=== PATIENT | female | born 1935 | race Caucasian/White ===

== ENCOUNTER 2017-07-14 01:36 | Inpatient (IN) | payer MEDICARE, OTHER ==
[2017-07-14] MEDS ORDERED: Ondansetron HCl/PF 4 MG/2 ML Vial ONE ×2 (02:23→05:14)
[2017-07-14] MEDS ORDERED: cloNIDine 0.1 MG TAB ONE (02:41)
[2017-07-14 02:53] LABS: #Lymphocytes 1.5 thou/uL (1.20-3.40); #Monocytes 0.7 thou/uL (0.11-0.59); #Neutrophils 9.2 thou/uL (1.40-6.50); %Basophils 0.3 % (0.0-1.0); %Eosinophils 0.3 % (0.0-10.0); %Lymphocytes 13.1 % (21.0-51.0); %Monocytes 5.9 % (0.0-10.0); Hematocrit 37.2 % (36.0-47.0); Mean Platelet Volume 6.6 fL (7.4-10.4); Red Blood Cell (RBC) Count 4.33 mill/uL (4.20-5.40); White Blood Cell (WBC) Count 11.5 thou/uL (4.8-10.8)
[2017-07-14 03:15] LABS: ALT (SGPT) 14 U/L (8-55); AST (SGOT) 23 U/L (5-34); Alkaline Phosphatase 61 U/L (40-150); Anion Gap 12 mmol/L (10-20); BUN (Urea Nitrogen) 17 mg/dL (9.8-20.1); Bilirubin, Total 1.1 mg/dL (0.2-1.2); Calc. Creatinine Clearance 0 mL/min (70-130); Calcium 9.4 mg/dL (7.8-10.44); Carbon Dioxide 26 mmol/L (23-31); Chloride 90 mmol/L (98-107); Estimated GFR-MDRD 54; Globulin 2.9 g/dL (2.4-3.5); Protein, Total 7.1 g/dL (6.0-8.3)
[2017-07-14 03:20] LABS: Troponin I Less than 0.010 ng/mL (< 0.028)
[2017-07-14 04:49] LABS: Bilirubin Negative (Negative); Blood, Urine Negative (Negative); Glucose, Urine (Dipstick) Negative (Negative); Ketone, Urine Trace mg/dL (Negative); Nitrite Negative (Negative); Protein, Urine (Dipstick) Negative (Neg-Trace); Urobilinogen 0.2 mg/dL (0.2-1.0)
[2017-07-14 05:13] LABS: Osmolality, Urine 410 mOsm/kg (300-900)
[2017-07-14 05:22] LABS: Sodium, Urine 141 mmol/L (Not Available)
[2017-07-14 05:24] LABS: Magnesium 1.9 mg/dL (1.6-2.6); Phosphorus 2.3 mg/dL (2.3-4.7)
[2017-07-14] MEDS ORDERED: Ondansetron HCl/PF 4 MG/2 ML Vial IVP PRN ×2 (05:31→06:25)
[2017-07-14] MEDS ORDERED: Acetaminophen 325 MG TAB PO PRN ×2 (05:31→06:25)
[2017-07-14] MEDS ORDERED: Ondansetron ODT 4 MG TAB SL PRN (05:31)
[2017-07-14] MEDS: Sodium Chloride 0.9% 1,000 ML IV SCH ×3 (05:38→21:27)
[2017-07-14 05:46] VITALS: BMI 23.7
[2017-07-14 06:13] LABS: Troponin I 0.013 ng/mL (< 0.028)
[2017-07-14] MEDS ORDERED: Ondansetron ODT 4 MG TAB PO PRN (06:25)
[2017-07-14] MEDS ORDERED: Senokot 8.6 MG TAB PO PRN (06:25)
[2017-07-14] MEDS ORDERED: Calcium Carbonate 500 MG ChewTAB PO PRN (06:25)
[2017-07-14] MEDS ORDERED: Diabetic Tussin 200 MG/10 ML UDCUP PO PRN (06:31)
[2017-07-14] MEDS ORDERED: Polyethylene Glycol 3350 17 GM Packet PO PRN (06:31)
[2017-07-14] MEDS ORDERED: Eucerin (Mineral Oil/Petrolatum,White) 30 gm Jar TOP PRN (06:31)
[2017-07-14] MEDS ORDERED: Loratadine 10 MG TAB PO PRN (06:31)
--- NOTE | 2017-07-14 06:41 | HP ---
DATE OF ADMISSION: 07/14/2017 PRIMARY CARE PHYSICIAN: CARLOS Romo. PRIMARY PRACTICAL NURSING INSTRUCTOR: Dr. George. CHIEF COMPLAINT: Nausea, vomiting. HISTORY OF PRESENT ILLNESS: Patient is an 82-year-old female with hypertension and GERD who presente d to the emergency room with above complaints. Over the last 12 hours, the patient developed gradual worsening nausea along with vomiting. She has vomited 3 times so far. She also had some generalized headache that has resolved at this time. She denies any abdominal pain, dysuria, hematuria or urgency. No fever or chills reported. She denies e ating outside. She feels generally weak and fatigued. In the emergency room, initial vital signs showed temperature 98.8, respiration of 18, pulse rate of 72 with blood pressure at 204/89 with O2 saturation of 97% on room air. EKG showed normal sinus rhyt hm without significant ST-T wave changes. Her labs were consistent with hyponatremia with sodium of 124. KUB was negative for obstruction. She received IV fluids with clonidine and Zofran in the [facility] room. PAST MEDICAL HISTORY: 1. Hypertension. 2. GERD. 3. Coronary artery disease. 4. Anxiety. 5. Hyperlipidemia. PAST SURGICAL HISTORY: 1. Cardiac catheterization that showed single vessel disease. 2. Hysterectomy. ALLERGIES: Patient is allergic to SULFA and CELEBREX. CURRENT HOME MEDICATIONS: Patient is unable to recall her medications. Family to bring an accurate list of medications later today. SOCIAL HISTORY: Patient currently lives at home with her family in [place]. She denies current use of smoking, alcohol or drug use. FAMILY HISTORY: Negative for premature coronary artery disease. REVIEW OF SYSTEMS: The following complete review of systems was negative, unless otherwise mentioned in the HPI or below: Constitutional: Weight loss or gain, ability to conduct usual activities. Skin: Rash, itching. Eyes: Double vision, pain. ENT/Mouth: Nose bleeding, neck stiffness, pain, tenderness. Cardiovascular: Palpitations, dyspnea on exertion, orthopnea. Respiratory: Shortness of breath, wheezing, cough, hemoptysis, fever or night sweats. Gastrointestinal: Poor appetite, abdominal pain, heartburn, nausea, vomiting, constipation, or diarr hea. Genitourinary: Urgency, frequency, dysuria, nocturia. Musculoskeletal: Pain, swelling. Neurologic/Psychiatric: Anxiety, depression. Allergy/Immunologic: Skin rash, bleeding tendency. PHYSICAL EXAMINATION: VITAL SIGNS: As discussed above. Her blood pressure later improved to 176/76. GENERAL: An 82-year-old female in no apparent distress. Nausea somewhat improved. HEENT: Head is atraumatic, normocephalic, sclerae are anicteric. Dry mucous membrane, no oral lesio n. NECK: Supple, no JVD appreciated. No carotid bruit. LUNGS: Clear to auscultation bilaterally. No wheezing or rales. HEART: S1, S2 present. Regular rate and rhythm, 2/6 systolic murmur over the mitral area. ABDOMEN: Soft, nontender, bowel sounds present, no rebound or guarding, no costovertebral angle tend erness. EXTREMITIES: No edema or calf tenderness. NEUROLOGIC: Grossly nonfocal, moves all four extremities. PSYCHIATRY: Alert, awake, oriented x3. SKIN: Warm and dry. LYMPH NODES: No palpable lymph nodes in the neck. PERIPHERAL VASCULAR: Radial pulses palpable bilaterally. MUSCULOSKELETAL: No joint swelling or tenderness. LABORATORY FINDINGS AND IMAGING: CBC showed WBC 11.5 with platelet count of 270, hemoglobin 12.3. C hemistries showed sodium 124, potassium 4.2, chloride 90, bicarbonate 26, BUN 17, creatinine 0.98, se rum osmolality 261, urine osmolality 410 with urine sodium 141. KUB and chest x-ray by my review as discussed above. EKG by my review as discussed above. IMPRESSION: 1. Nausea, vomiting with headache of unclear etiology. Possibilities include acute gastroenteritis, suspected infectious. We will also get a CT scan of the brain to rule out intracranial abnormalitie s. 2. Hypertensive urgency, probably the cause of headache. We will start her on home medications once confirmed. P.r.n. medications will be added. Her anxiety may be contributing to her elevated blood pressure. 3. Hypotonic hyponatremia, probably secondary to dehydration from nausea and vomiting. We will cont inue IV fluids and monitor sodium closely. We will rule out thyroid abnormality. We will also check cortisol level. 4. Chronic kidney disease stage 3. 5. Mild leukocytosis, probably secondary to gastroenteritis. A stool sample will be sent. 6. Hyperlipidemia. Will resume home medications once confirmed. 7. CODE STATUS: FULL CODE. Surrogate decision maker: The patient makes her own decisions with the help of her family. Plan of care was discussed with the patient. She stated understanding. The patient will require probably 2 days for stabilization given her significant hyponatremia and navarro vated blood pressure.
[2017-07-14] MEDS ORDERED: Losartan Potassium 25 MG TAB PO SCH (07:15)
[2017-07-14] MEDS: Famotidine/PF 20 mg/2ml Vial SLOW IVP SCH ×2 (08:22→21:27)
[2017-07-14 09:05] LABS: Troponin I 0.021 ng/mL (< 0.028)
--- NOTE | 2017-07-14 09:07 | CT ---
CT HEAD WITHOUT CONTRAST: Multiple axial tomograms were obtained through the head without IV enhancement. HISTORY: Headache. Hypertension. FINDINGS: Ventricles have normal size and position. There are mild to moderate chronic ischemic white matter c hanges which have become more prominent when compared to the prior exam in 2009. No evidence of acut e cortical infarct. No mass or hemorrhage identified. IMPRESSION: There are mild to moderate chronic ischemic white matter changes. POS: [facility]
[2017-07-14] MEDS: Multivit, Therapeutic 1 TAB PO SCH (09:17)
[2017-07-14] MEDS: Heparin 5,000 UNITS/ML VIAL SC SCH ×2 (09:19→21:28)
--- NOTE | 2017-07-14 09:50 | RAD ---
ABDOMINAL SERIES WITH UPRIGHT CHEST AND 2 VIEW ABDOMEN: HISTORY: Abdominal pain with nausea and vomiting. FINDINGS: Hazy interstitial density is seen in the lung bases of uncertain significance. No confluent lung opa city. Bowel gas pattern unremarkable. Scattered stool and gas throughout the colon. Mild gaseous distenti on of the stomach. No significant small bowel gas. No free air identified. No abnormal calcificati on. IMPRESSION: Unremarkable bowel gas pattern. POS: [facility]
--- NOTE | 2017-07-14 11:42 | PDOC.PN ---
- Subjective Encounter Start Date: 07/14/17 Encounter Start Time: 10:15 Subjective: awake, still weak, no nausea or abd pain now - Objective Resuscitation Status: Resuscitation Status FULL:Full Resuscitation MAR Reviewed: Yes Vital Signs & Weight: Vital Signs (12 hours) Temp Pulse Resp BP Pulse Ox 07/14/17 08:17 97.5 F L 64 18 158/65 H 96 07/14/17 08:00 97.5 F L 64 18 158/65 H 96 07/14/17 06:09 71 166/73 H 07/14/17 05:45 97.2 F L 73 18 182/67 H 96 07/14/17 05:25 97.2 F L 76 18 193/73 H 96 Weight Weight 121 lb 8 oz I&O: 07/13/17 07/14/17 07/15/17 06:59 06:59 06:59 Intake Total 200 Balance 200 Result Diagrams: 07/14/17 02:35 07/14/17 08:30 Phys Exam - Physical Examination HEENT: PERRLA, sclera anicteric dry mucosa Neck: no JVD, supple Respiratory: no wheezing, no rales Cardiovascular: RRR, no significant murmur Gastrointestinal: soft, non-tender, no distention, positive bowel sounds Musculoskeletal: no edema, pulses present Neurological: non-focal, moves all 4 limbs Dx/Plan (1) Nausea & vomiting Code(s): R11.2 - NAUSEA WITH VOMITING, UNSPECIFIED Status: Acute Qualifiers: Vomiting type: unspecified Vomiting Intractability: intractable Qualified Code(s): R11.2 - Nausea with vomiting, unspecified (2) Dehydration Code(s): E86.0 - DEHYDRATION Status: Acute (3) Hyponatremia Code(s): E87.1 - HYPO-OSMOLALITY AND HYPONATREMIA Status: Acute (4) HTN (hypertension) Code(s): I10 - ESSENTIAL (PRIMARY) HYPERTENSION Status: Chronic Qualifiers: Hypertension type: essential hypertension Qualified Code(s): I10 - Essential (primary) hypertension (5) CAD (coronary artery disease) Code(s): I25.10 - ATHSCL HEART DISEASE OF [place] CORONARY ARTERY W/O ANG PCTRS Status: Chronic Qualifiers: Coronary Disease-Associated Artery/Lesion type: [place] artery [place] vs. transplanted heart: [place] heart Associated angina: without angina Qualified Code(s): I25.10 - Atherosclerotic heart disease of [place] coronary artery without angina pectoris (6) Dyslipidemia Code(s): E78.5 - HYPERLIPIDEMIA, UNSPECIFIED Status: Chronic - Plan CT brain no ac infarct, headache is resolved -: continue iv hydration, nephro consult -: stool studies, culture are pending -: is on toprol, cozaar and nebs -: slowly mobilize as tolerated, she lives alone at home * . Review of Systems - Medications/Allergies Allergies/Adverse Reactions: Allergies Allergy/AdvReac Type Severity Reaction Status Date / Time celecoxib [From Celebrex] Allergy "made me Verified 07/04/15 09:42 real sick" Sulfa (Sulfonamide Allergy Rash Verified 07/04/15 09:42 Antibiotics) Medications: Current Medications Acetaminophen (Tylenol) 650 mg PO Q4H PRN PRN Reason: Headache/Fever or Pain Albuterol/Ipratropium (Duoneb) 3 ml NEB [id number] PRN PRN Reason: SOB &/or Wheezing Calcium Carbonate (Tums) 1,000 mg PO Q4H PRN PRN Reason: Heartburn or Indigestion Famotidine (Pepcid) 20 mg SLOW IVP Q12HR [facility] Last Admin: 07/14/17 08:22 Dose: 20 mg Guaifenesin (Robitussin Sf) 200 mg PO Q4H PRN PRN Reason: Cough Heparin Sodium (Porcine) (Heparin) 5,000 units SC BID [facility] Last Admin: 07/14/17 09:19 Dose: 5,000 units Sodium Chloride (Normal Saline 0.9%) 1,000 mls @ 100 mls/hr IV .Q10H [facility] Stop: 07/16/17 17:00 Last Admin: 07/14/17 05:38 Dose: Not Given Loratadine (Claritin) 10 mg PO DAILYPRN PRN PRN Reason: Sinus Symptoms Losartan Potassium (Cozaar) 100 mg PO DAILY [facility] Metoprolol Succinate (Toprol Xl) 25 mg PO DAILY [facility] Mineral Oil/White Petrolatum (Eucerin Cream) 0 gm TOP BIDPRN PRN PRN Reason: Dry Skin Multivitamins (Theragran) 1 tab PO DAILY [facility] Last Admin: 07/14/17 09:17 Dose: 1 tab Ondansetron HCl (Zofran Odt) 4 mg PO Q6H PRN PRN Reason: Nausea/Vomiting Ondansetron HCl (Zofran) 4 mg IVP Q6H PRN PRN Reason: Nausea/Vomiting Last Admin: 07/14/17 10:25 Dose: 4 mg Polyethylene Glycol (Miralax) 17 gm PO DAILY PRN PRN Reason: Constipation Senna (Senokot) 2 tab PO HSPRN PRN PRN Reason: Constipation Sodium Chloride (Flush - Normal Saline) 10 ml IVF PRN PRN PRN Reason: Saline Flush Stop: 07/14/17 17:00 Last Admin: 07/14/17 09:18 Dose: 10 ml
[2017-07-15 05:35] LABS: #Lymphocytes 1.9 thou/uL (1.20-3.40); #Monocytes 0.7 thou/uL (0.11-0.59); #Neutrophils 4.3 thou/uL (1.40-6.50); %Basophils 0.3 % (0.0-1.0); %Eosinophils 0.5 % (0.0-10.0); %Lymphocytes 27.1 % (21.0-51.0); %Monocytes 10.6 % (0.0-10.0); Mean Platelet Volume 6.6 fL (7.4-10.4)
[2017-07-15 06:18] LABS: ALT (SGPT) 11 U/L (8-55); AST (SGOT) 21 U/L (5-34); Alkaline Phosphatase 45 U/L (40-150); Anion Gap 9 mmol/L (10-20); BUN (Urea Nitrogen) 12 mg/dL (9.8-20.1); Bilirubin, Total 0.8 mg/dL (0.2-1.2); Calc. Creatinine Clearance 40 mL/min (70-130); Calcium 8.4 mg/dL (7.8-10.44); Carbon Dioxide 21 mmol/L (23-31); Chloride 102 mmol/L (98-107); Estimated GFR-MDRD 58; Globulin 2.1 g/dL (2.4-3.5); Magnesium 1.7 mg/dL (1.6-2.6); Phosphorus 2.7 mg/dL (2.3-4.7); Protein, Total 5.2 g/dL (6.0-8.3)
[2017-07-15] MEDS: Sodium Chloride 0.9% 1,000 ML IV SCH ×2 (08:24→12:19)
[2017-07-15] MEDS: Famotidine/PF 20 mg/2ml Vial SLOW IVP SCH (12:17)
[2017-07-15] MEDS: Heparin 5,000 UNITS/ML VIAL SC SCH ×2 (12:17→20:58)
[2017-07-15] MEDS: Multivit, Therapeutic 1 TAB PO SCH (12:17)
[2017-07-15] MEDS: Losartan Potassium 25 MG TAB PO SCH (12:17)
[2017-07-15 12:51] LABS: Anion Gap 10 mmol/L (10-20); BUN (Urea Nitrogen) 13 mg/dL (9.8-20.1); Calc. Creatinine Clearance 36 mL/min (70-130); Calcium 8.9 mg/dL (7.8-10.44); Carbon Dioxide 24 mmol/L (23-31); Chloride 102 mmol/L (98-107); Estimated GFR-MDRD 51
--- NOTE | 2017-07-15 13:35 | ULT ---
BILATERAL RENAL ULTRASOUND INCLUDING VASCULAR DUPLEX WITH COLOR AND SPECTRAL DOPPLER IMAGING: HISTORY: An 82-year-old female with a history of renal failure. COMPARISON: 02/01/2013 FINDINGS: The right kidney measures 7.6 x 4.1 x 4.5 cm. The left kidney measures 8.9 x 4.7 x 5.1 cm. Multiple bilateral renal cysts, up to 2.6 x 2.9 cm, on the right side, with a hypoechoic focus measuring 1.4 x 1.6 cm on the right kidney, which is not a definitive simple cyst. Several cysts of the left kidne y, up to 7.2 x 10.5 x 11.3 cm. There is no renal hydronephrosis. There is some minimal increased re nal cortical echogenicity, evidence for nonspecific chronic renal disease. RENAL VASCULAR DUPLEX ICLUDING COLOR AND SPECTRAL DOPPLER IMAGING: No evidence of significant abnormal renal artery peak systolic velocities. Right and left renal edwin ry to aortic ratios are minimally increased, however. Resistive indices are less than 0.7. IMPRESSION: 1. Small kidneys bilaterally without renal hydronephrosis. 2. Multiple bilateral renal cysts, including one small hypoechoic focus, not definitively a benign c yst. The bladder is unremarkable. No definitive significant renal artery stenosis. POS: [facility]
--- NOTE | 2017-07-15 15:18 | PDOC.PN ---
- Subjective Encounter Start Date: 07/15/17 Encounter Start Time: 15:16 Patient seen and examined. No new complaints. No overnight events. Diarrhea resolved. Nausea getting better. - Objective Resuscitation Status: Resuscitation Status FULL:Full Resuscitation MAR Reviewed: Yes Vital Signs & Weight: Vital Signs (12 hours) Temp Pulse Resp BP Pulse Ox 07/15/17 12:30 97.7 F 61 18 178/63 H 98 07/15/17 08:00 98.1 F 59 L 16 154/72 H 95 07/15/17 04:00 97.9 F 54 L 18 152/54 H 95 Weight Admit Weight 121 lb 8 oz Weight 121 lb 7 oz I&O: 07/14/17 07/15/17 07/16/17 06:59 06:59 06:59 Intake Total 200 1350 Output Total 600 Balance 200 750 Result Diagrams: 07/15/17 05:12 07/15/17 12:14 Phys Exam - Physical Examination Constitutional: NAD Respiratory: no wheezing, no rhonchi Cardiovascular: RRR, no rub Gastrointestinal: soft, non-tender, no distention, positive bowel sounds Musculoskeletal: no edema Neurological: non-focal, moves all 4 limbs Dx/Plan - Plan DVT proph w/heparin, DVT proph w/SCDs IMPRESSION: 1. Acute Gastroenteritis - improving 2. Hypertensive urgency, probably the cause of headache. 3. Hypotonic hyponatremia, probably secondary to dehydration from nausea and vomiting. 4. Chronic kidney disease stage 3. 5. Mild leukocytosis, probably secondary to gastroenteritis. 6. Hyperlipidemia. PLAN: * Cancel stool studies since patient has not had a BM * Nephro consult appreciated * AM labs * Ambulate Review of Systems - Review of Systems Respiratory: negative: Cough, Dry, Shortness of Breath, Hemoptysis, SOB with Excertion, Pleuritic Pain, Sputum, Wheezing Cardiovascular: negative: Chest Pain, Palpitations, Orthopnea, Paroxysmal Noc. Dyspnea, Edema, Light Headedness - Medications/Allergies Allergies/Adverse Reactions: Allergies Allergy/AdvReac Type Severity Reaction Status Date / Time celecoxib [From Celebrex] Allergy "made me Verified 07/04/15 09:42 real sick" Sulfa (Sulfonamide Allergy Rash Verified 07/04/15 09:42 Antibiotics) Medications: Current Medications Acetaminophen (Tylenol) 650 mg PO Q4H PRN PRN Reason: Headache/Fever or Pain Albuterol/Ipratropium (Duoneb) 3 ml NEB [id number] PRN PRN Reason: SOB &/or Wheezing Calcium Carbonate (Tums) 1,000 mg PO Q4H PRN PRN Reason: Heartburn or Indigestion Guaifenesin (Robitussin Sf) 200 mg PO Q4H PRN PRN Reason: Cough Heparin Sodium (Porcine) (Heparin) 5,000 units SC BID [facility] Last Admin: 07/15/17 12:17 Dose: 5,000 units Loratadine (Claritin) 10 mg PO DAILYPRN PRN PRN Reason: Sinus Symptoms Losartan Potassium (Cozaar) 100 mg PO DAILY [facility] Last Admin: 07/15/17 12:17 Dose: 100 mg Metoprolol Succinate (Toprol Xl) 25 mg PO DAILY [facility] Last Admin: 07/15/17 12:16 Dose: 25 mg Mineral Oil/White Petrolatum (Eucerin Cream) 0 gm TOP BIDPRN PRN PRN Reason: Dry Skin Multivitamins (Theragran) 1 tab PO DAILY [facility] Last Admin: 07/15/17 12:17 Dose: 1 tab Ondansetron HCl (Zofran Odt) 4 mg PO Q6H PRN PRN Reason: Nausea/Vomiting Ondansetron HCl (Zofran) 4 mg IVP Q6H PRN PRN Reason: Nausea/Vomiting Last Admin: 07/14/17 10:25 Dose: 4 mg Polyethylene Glycol (Miralax) 17 gm PO DAILY PRN PRN Reason: Constipation Senna (Senokot) 2 tab PO HSPRN PRN PRN Reason: Constipation
[2017-07-16 04:35] LABS: #Eosinphils 0.1 thou/uL (0.0-0.7); %Basophils 0.2 % (0.0-1.0); %Eosinophils 0.9 % (0.0-10.0); %Lymphocytes 28.7 % (21.0-51.0); %Monocytes 13.9 % (0.0-10.0); Hematocrit 32.4 % (36.0-47.0); Mean Platelet Volume 6.8 fL (7.4-10.4); Red Blood Cell (RBC) Count 3.74 mill/uL (4.20-5.40)
[2017-07-16 04:45] VITALS: TEMP 98.1
[2017-07-16 04:58] LABS: Anion Gap 10 mmol/L (10-20); BUN (Urea Nitrogen) 24 mg/dL (9.8-20.1); BUN/Creatinine Ratio 21.43; Calc. Creatinine Clearance 33 mL/min (70-130); Calcium 8.8 mg/dL (7.8-10.44); Carbon Dioxide 25 mmol/L (23-31); Chloride 105 mmol/L (98-107); Estimated GFR-MDRD 46; Phosphorus 3.1 mg/dL (2.3-4.7)
[2017-07-16] MEDS: Heparin 5,000 UNITS/ML VIAL SC SCH (08:17)
[2017-07-16] MEDS: Losartan Potassium 25 MG TAB PO SCH (08:18)
[2017-07-16] MEDS: Multivit, Therapeutic 1 TAB PO SCH (08:18)
[2017-07-16 08:29] VITALS: BP 163/68
--- NOTE | 2017-07-16 11:18 | DIS ---
DATE OF DISCHARGE: 07/16/2017 DISCHARGE DISPOSITION: Home. FOLLOWUP: 1. Follow up with primary care physician CARLOS Romo in one week. 2. Base met in 1 week is recommended. Primary care physician is advised to follow. 3. Follow up with Dr. Ad Gatica in one week. ALLERGIES: Patient is allergic to CELEBREX AND SULFA. The patient was seen and examined on the day of discharge. Denies any new complaints. No chest pain , shortness of breath, palpitations. DISCHARGE MEDICATIONS: 1. Amlodipine 2.5 mg daily as needed for systolic blood pressure greater than 160 (new medication). 2. Multivitamin 1 tablet daily. 3. Toprol-XL 12.5 mg daily. 4. Losartan 100 mg daily. INPATIENT SIGNALLING AND COMMUNICATIONS ENGINEER: Nephrology, Dr. Ad Gatica. BRIEF HOSPITAL COURSE: Patient is an 82-year-old female with hypertension and GERD, who presented to the hospital with nausea and vomiting. Please refer to the history and physical dated 07/14/2017 fo r further details. The patient was admitted to the hospital with the diagnosis of nausea, vomiting with headache of uncl ear etiology. A CT scan of the brain was negative for acute findings. She was found to have elevate d blood pressure that improved after resuming her home meds. Her sodium on admission was 124 that barba s improved to 136 with gentle IV hydration. Her lowest sodium this admission was 119. The patient w as seen by Nephrology, Dr. Ad Gatica. Nausea, vomiting, diarrhea, and headache has completely r esolved. Plan of care was discussed with the son at the bedside, he stated understanding. SIGNIFICANT LABORATORY DATA: 1. WBC on admission 11.5 at discharge 7.0. 2. Sodium on admission 124. 3. Serum osmolarity on admission 264. 4. Cardiac enzymes were normal. 5. Cortisol level was 28.5. 6. TSH was 2.24. 7. Urine osmolality 410. 8. Urine sodium is 141. 9. KUB was negative for acute findings. 10. CT scan of the brain was negative. 11. Renal ultrasound showed small kidneys bilaterally without renal hydronephrosis. She also had mu ltiple bilateral renal cysts without any renal artery stenosis. IMPRESSION: 1. Nausea, vomiting on admission, probably secondary to acute gastroenteritis, resolved. 2. Headache, resolved. 3. Hypertensive urgency, improved. 4. Hypotonic hyponatremia, resolved. 5. Chronic kidney disease, stage 3. 6. Bilateral renal cysts. Primary care physician is advised to follow. Patient normally follows Dr Mercy Gatica. 7. Mild leukocytosis on admission, probably secondary to gastroenteritis, resolved. 8. Hyperlipidemia. Primary care physician is advised to follow. CODE STATUS: FULL CODE.
== END 2017-07-16 11:23 | disposition home or self-care (01) | DRG 392 ==
LOC: ERS 01:36 → T4-B 04:10
PROVIDERS: ADMIT Internal Medicine; ATTEND Internal Medicine
DX: K52.9 Noninfective gastroenteritis and colitis, unspecified (principal); E87.1 Hypo-osmolality and hyponatremia; E86.0 Dehydration; N18.3 Chronic kidney disease, stage 3 (moderate); K21.9 Gastro-esophageal reflux disease without esophagitis; I25.10 Atherosclerotic heart disease of native coronary artery without angina pectoris; F41.9 Anxiety disorder, unspecified; E78.5 Hyperlipidemia, unspecified; Z88.2 Allergy status to sulfonamides; Z88.8 Allergy status to other drugs, medicaments and biological substances; I16.0 Hypertensive urgency; I12.9 Hypertensive chronic kidney disease with stage 1 through stage 4 chronic kidney disease, or unspecified chronic kidney disease; N28.1 Cyst of kidney, acquired
CPT/HCPCS: 36415; 70450; 74022; 76700; 76770; 80053; 80069; 81003; 82533; 82553; 83735; 83930; 83935; 84100; 84300; 84443; 84484; 84550; 85025; 93005; 96361; 96374; 96376; J1644; J2405; S0028

== ENCOUNTER 2018-01-02 08:30 | Outpatient (CLI) | payer MEDICARE, OTHER ==
--- NOTE | 2018-01-02 08:50 | RAD ---
CHEST PA AND LATERAL: Date: 01/02/18 HISTORY: 82-year-old female with history of chest pain. COMPARISON: 04/21/17. FINDINGS: Heart size is within normal limits. Lungs are clear. No confluent pneumonia, overt edema, or pleural effusion. IMPRESSION: No acute intrathoracic disease. Stable from prior study. Atherosclerosis of aorta with ectasia. POS: [facility]
== END 2018-01-02 08:31 | disposition home or self-care (01) ==
LOC: RAD-FRANK 08:30
PROVIDERS: ATTEND Nurse Practitioner Family
DX: R07.9 Chest pain, unspecified (principal); I70.0 Atherosclerosis of aorta; I77.819 Aortic ectasia, unspecified site
CPT/HCPCS: 71046

== ENCOUNTER 2018-03-20 09:17 | Outpatient (CLI) | payer MEDICARE, OTHER ==
--- NOTE | 2018-03-20 09:37 | RAD ---
FRONTAL VIEW ABDOMEN KUB: Date: 03/20/18 COMPARISON: 04/21/17. INDICATION: Abdominal pain. FINDINGS: There is a nonobstructed bowel gas pattern with retained fecal material seen at the right hemicolon. The imaged lower lung zones reveal interstitial prominence. There is no obvious free air. Osseous deg enerative change present. There are pelvic phleboliths. IMPRESSION: Nonobstructed bowel gas pattern. POS: [facility]
== END 2018-03-20 09:18 | disposition home or self-care (01) ==
LOC: RAD-FRANK 09:17
PROVIDERS: ATTEND Nurse Practitioner Family
DX: E78.2 Mixed hyperlipidemia (principal)
CPT/HCPCS: 74018

== ENCOUNTER 2018-05-12 09:26 | Outpatient (CLI) | payer MEDICARE, OTHER ==
--- NOTE | 2018-05-12 12:24 | ULT ---
ABDOMINAL ULTRASOUND: HISTORY: Abdominal pain and bloating. TECHNIQUE: Real-time imaging of the upper abdomen demonstrates a normal appearing gallbladder. The common duct is 4 mm. The technologist reports a negative ultrasound Cornelius sign. The liver is 14 cm in length a nd shows no focal abnormalities. The spleen is somewhat obscured by gas. It measures approximately 7 cm in length. The right kidney measures 7.4 cm and the left kidney 8.6 cm in size. Bilateral renal cysts are noted . The largest, on the right, is 3 cm. The largest on the left is a large, exophytic cyst, which tracey ears to arise from the lower pole of the left kidney, which measures approximately 11.2 cm in maximum dimension. IMPRESSION: 1. Borderline small kidneys with suggestion of some cortical thinning. 2. Bilateral renal cysts with a very large, exophytic cyst extending from the lower pole left kidney , measuring as much as 11 cm in diameter. 3. The abdominal aorta and inferior vena cava regions are partially obscured, as is the pancreas. POS: [facility]
== END 2018-05-12 09:27 | disposition home or self-care (01) ==
LOC: ULT 09:26
PROVIDERS: ATTEND Nurse Practitioner Family
DX: R10.9 Unspecified abdominal pain (principal); N28.1 Cyst of kidney, acquired; N27.1 Small kidney, bilateral
CPT/HCPCS: 76700

== ENCOUNTER 2018-06-18 08:53 | Outpatient (CLI) | payer MEDICARE, OTHER ==
--- NOTE | 2018-06-18 11:00 | CT ---
CT ABDOMEN WITH CONTRAST: Technique: Multiple axial tomograms were obtained through the abdomen with IV enhancement. Oral contr ast was administered. Indications: Umbilical pain. Comparison: CT abdomen and pelvis, 11-09-08. FINDINGS: The lung bases appear clear. Liver, spleen, and pancreas are unremarkable. Stomach and duodenum unremarkable. The visualized small bowel loops appear unremarkable. The entire small bowel and colon are not evalua trudi on this abdomen only study. The appendix is not identified. There are numerous renal cystic lesions. There is a large cyst from the inferior pole of the left kid siobhan which measures up to 11 cm diameter in the coronal plane. This was present in 2008 but has increa sed in size. A cyst in the lower pole of the right kidney has also increased in size and measures 3.2 cm today. There are numerous other smaller cysts in both kidneys. A cyst from the superior pole left kidney has increased in size and now measures 3.2 cm. No hydronephrosis. Aorta shows atherosclerotic calcification and normal caliber. No adenopathy apparent. Degenerative spine changes are noted. IMPRESSION: 1. Numerous renal cystic lesions, several of which have increased in size since 2008. A large 11 cm c yst extends from the inferior pole of the left kidney. 2. Otherwise no acute intraabdominal process. The small and large bowel, including the appendix are n ot evaluated on this abdomen only study. POS: [facility]
[2018-06-18] MEDS ORDERED: Iopamidol 370 76% 100 ML VIAL ONE (13:57)
== END 2018-06-18 08:54 | disposition home or self-care (01) ==
LOC: CT 08:53
PROVIDERS: ATTEND Internal Medicine Gastroenterology
DX: R14.0 Abdominal distension (gaseous) (principal); R10.9 Unspecified abdominal pain; R74.8 Abnormal levels of other serum enzymes; N28.9 Disorder of kidney and ureter, unspecified; N28.1 Cyst of kidney, acquired
CPT/HCPCS: 74160; 82565

== ENCOUNTER 2019-04-28 10:42 | Outpatient (CLI) | payer MEDICARE, OTHER ==
--- NOTE | 2019-04-28 12:11 | RAD ---
RIGHT WRIST RADIOGRAPHS 3 VIEWS: Date: 04/28/19 PROVIDED CLINICAL HISTORY: Pain status post fall. FINDINGS: There is a comminuted intraarticular distal radial fracture without significant displacement. No karis tional fracture is evident. Chondrocalcinosis is noted. Degenerative changes of the first CMC joint a re noted. IMPRESSION: Comminuted intrsarticular distal radial fracture. POS: [facility]
== END 2019-04-28 10:43 | disposition home or self-care (01) ==
LOC: RAD-FRANK 10:42
PROVIDERS: ATTEND Nurse Practitioner Family
DX: S69.91XA Unspecified injury of right wrist, hand and finger(s), initial encounter (principal); S52.571A Other intraarticular fracture of lower end of right radius, initial encounter for closed fracture

== ENCOUNTER 2019-04-28 11:44 | Emergency (ER) | payer MEDICARE, OTHER ==
[2019-04-28] MEDS ORDERED: HYDROcodone/Acetaminophen 5/325 mg Tablet ONE (12:54)
== END 2019-04-28 14:10 | disposition home or self-care (01) ==
LOC: ERS 11:44
DX: S52.501A Unspecified fracture of the lower end of right radius, initial encounter for closed fracture (principal); I10 Essential (primary) hypertension; F41.9 Anxiety disorder, unspecified; W18.30XA Fall on same level, unspecified, initial encounter

== ENCOUNTER 2019-07-23 19:37 | Emergency (ER) | payer MEDICARE, OTHER ==
[2019-07-23 20:26] LABS: #Basophils 0.1 thou/uL (0.0-0.2); #Eosinphils 0.2 thou/uL (0.0-0.7); #Lymphocytes 1.8 thou/uL (1.20-3.40); #Monocytes 0.7 thou/uL (0.11-0.59); %Basophils 0.7 % (0.0-1.0); %Eosinophils 1.6 % (0.0-10.0); %Lymphocytes 18.2 % (21.0-51.0); %Monocytes 7.5 % (0.0-10.0); Hemoglobin 11.6 g/dL (12.0-16.0); Mean Corpuscular HGB CONC 33.1 g/dL (32.0-36.0); Mean Corpuscular Hemoglobin 27.8 pg (27.0-31.0); Mean Platelet Volume 6.3 fL (7.4-10.4); Platelet Count 418 thou/uL (130-400); RBC Distribution Width 12.1 % (11.5-14.5); Red Blood Cell (RBC) Count 4.16 mill/uL (4.20-5.40); White Blood Cell (WBC) Count 9.8 thou/uL (4.8-10.8)
--- NOTE | 2019-07-23 20:35 | RAD ---
PA AND LATERAL CHEST: 07/23/19 HISTORY: Hypertension. COMPARISON: 01/02/18 exam. Heart size is borderline. There are atherosclerotic changes of the aorta. The lungs are clear of infi ltrates. Bones appear demineralized. IMPRESSION: Borderline heart size. POS: [facility]
[2019-07-23 20:45] LABS: ALT (SGPT) 11 U/L (8-55); AST (SGOT) 16 U/L (5-34); Albumin 4.2 g/dL (3.4-4.8); Alkaline Phosphatase 80 U/L (40-110); Anion Gap 11 mmol/L (10-20); BUN (Urea Nitrogen) 18 mg/dL (9.8-20.1); Bilirubin, Total 0.2 mg/dL (0.2-1.2); CK (CPK) 51 U/L (29-168); Calc. Creatinine Clearance 0 mL/min (70-130); Calcium 9.5 mg/dL (7.8-10.44); Carbon Dioxide 27 mmol/L (23-31); Chloride 100 mmol/L (98-107); Estimated GFR-MDRD 43; Globulin 2.5 g/dL (2.4-3.5); Glucose 210 mg/dL (83-110); Potassium 4.2 mmol/L (3.5-5.1); Protein, Total 6.7 g/dL (6.0-8.3); Sodium 134 mmol/L (136-145)
--- NOTE | 2019-07-27 14:33 | EKG ---
Test Reason : Blood Pressure : / mmHG Vent. Rate : 073 BPM Atrial Rate : 073 BPM P-R Int : 126 ms QRS Dur : 068 ms QT Int : 404 ms P-R-T Axes : 056 029 032 degrees QTc Int : 445 ms Normal sinus rhythm Nonspecific ST abnormality Abnormal ECG Confirmed by GEORGE PATEL DO ([id number]), map editor [facility] ([id number]) on 07/27/2019 2:33:18 PM Referred By: Confirmed By:GEORGE PATEL DO
== END 2019-07-23 21:14 | disposition home or self-care (01) ==
LOC: ERS 19:37
DX: I10 Essential (primary) hypertension (principal); F41.9 Anxiety disorder, unspecified; Z79.82 Long term (current) use of aspirin; Z79.899 Other long term (current) drug therapy
CPT/HCPCS: 36415; 71046; 80053; 82550; 84484; 85025; 93005

== ENCOUNTER 2022-07-17 10:20 | Outpatient (CLI) | payer MEDICARE, OTHER | END 2022-07-17 10:21 | disposition home or self-care (01) | LOC: RAD 10:20 | PROVIDERS: ATTEND Nurse Practitioner Family | DX: M54.50 Low back pain, unspecified (principal); M47.816 Spondylosis without myelopathy or radiculopathy, lumbar region | CPT/HCPCS: 72100 ==